=== PATIENT | male | born 1960 | race Hispanic/Latino ===

== ENCOUNTER 2018-02-09 15:57 | Emergency (ER) | payer SELFPAY ==
[2018-02-09] MEDS ORDERED: NA CHLORIDE 0.9% 1,000 ML ONE (16:23)
[2018-02-09] MEDS ORDERED: ONDANSETRON 4 MG/2 ML VIAL ONE (16:32)
[2018-02-09] MEDS ORDERED: MORPHINE 4 MG/ML SYR ONE (16:32)
[2018-02-09 17:04] LABS: BUN Blood Urea Nitrogen 15 mg/dL (7-18); Bicarbonate 25 mmol/L (21-32); Glucose Level 126 mg/dL (74-106); Potassium 3.9 mmol/L (3.5-5.1); Protime INR 1.03; Sodium Level 140 mmol/L (136-145); Troponin I < 0.02 ng/mL (0.0-0.045)
[2018-02-09 17:08] LABS: Absolute Lymphocytes (CBC) 1.5 K/uL (0.7-4.9); Absolute Monocytes 0.4 K/uL (0.1-1.3); Absolute Neutrophil 7.6 K/uL (1.8-8.0); Basophils % 0.3 % (0-1.3); Eosinophils % 1.1 % (0-4.4); Hematocrit 45.8 % (39.6-49.0); Lymphocytes % 15.3 % (15.3-44.8); MCH 30.8 pg (27.0-35.0); MCV 88.1 fL (80-100); MPV 10.4 fL (7.6-11.3); RBC Red Blood Cell Count 5.19 M/uL (4.33-5.43)
--- NOTE | 2018-02-09 17:13 | RAD REPORT ---
EXAM DESCRIPTION: RAD - Pelvis - 02/09/2018 4:57 pm CLINICAL HISTORY: Fall from ladder, pelvic pain COMPARISON: None. TECHNIQUE: AP imaging of the pelvis was obtained. FINDINGS: No fracture of the bony pelvis. No fracture, dislocation or other acute hip joint finding. No significant SI joint findings. No soft tissue abnormality. IMPRESSION: Negative pelvis for acute or significant findings.
--- NOTE | 2018-02-09 17:13 | RAD REPORT ---
EXAM DESCRIPTION: RAD - Chest Single View - 02/09/2018 4:57 pm CLINICAL HISTORY: Fall from ladder, chest pain COMPARISON: None. TECHNIQUE: AP portable chest image was obtained 1642 hours . FINDINGS: Lung volumes are low. No pulmonary contusion or acute lung parenchymal process. Heart and vasculature are normal. No measurable pleural effusion and no pneumothorax. No acute bony abnormality seen. No acute aortic findings suspected. IMPRESSION: No acute cardiopulmonary process.
--- NOTE | 2018-02-09 18:00 | RAD REPORT ---
EXAM DESCRIPTION: CT - Head C Spine Cap Humberto Mcguire - 02/09/2018 5:42 pm CLINICAL HISTORY: Fall from ladder, head, neck, chest and abdomen pain COMPARISON: None. TECHNIQUE: Axial [address] head images were obtained. Axial [address] cervical spine images were obtaine d with sagittal and coronal reconstruction images reviewed. During dynamic enhancement of 100mL non-i onic contrast, axial 5 mm images of the chest, abdomen and pelvis were obtained. All CT scans are performed using dose optimization technique as appropriate and may include automated exposure control or mA/KV adjustment according to patient size. FINDINGS: No intracranial hemorrhage, mass or edema. No midline shift or abnormal fluid collection. Mastoid air cells and paranasal sinuses are clear. No skull fracture. No significant scalp injury. No foreign body seen. CT cervical spine imaging shows normal height. Normal alignment of the vertebrae. No disc space narro wing. No paraspinal mass or hematoma seen. Central canal detail is inherently limited. Concerns for t raumatic disc herniation or traumatic cord injury can be further addressed with MR imaging. CT chest shows no pneumothorax, pulmonary contusion or pleural fluid collection. Bilateral lower lung field atelectasis present. No mediastinal hematoma and the aorta and pulmonary arteries are unremark able. No chest will mass or abnormal axillary finding. No displaced rib fracture or other significant bony finding. CT abdomen and pelvis show no injury to solid abdominal viscera. Gallbladder and biliary tree are unr emarkable. No bowel injury or significant finding. No free air, free fluid or abnormal stranding. No urinary bladder abnormality. No significant bony finding. IMPRESSION: No significant CT Head finding. No significant CT Cervical Spine finding. No significant CT Chest finding. No significant CT Abdomen and Pelvis finding.
--- NOTE | 2018-02-09 18:15 | EDPHYS ---
Physician Documentation [facility] Name: Pop Kuhn Age: 57 yrs Sex: Male : 1960 Arrival Date: 02/09/2018 Time: 16:00 Bed 6 Private MD: ED Physician Brandan Andrade HPI: 02/09 16:21 This 57 yrs old Male presents to ER via Ambulatory with complaints of Fall cp Injury. 16:21 Details of fall: The patient fell from a height, from a ladder, approximately 7 feet. cp 16:21 Onset: The symptoms/episode began/occurred today, 1.5 hour(s) ago. cp 16:21 Associated injuries: The patient sustained injury to the chest, specifically the right cp supraclavicular area, right clavicle, anterior aspect of right upper chest, anterior aspect of left upper chest and mid-sternal area, pain with breathing, pain with movement. Severity of symptoms: in the emergency department the symptoms are unchanged, despite home interventions. Historical: - Allergies: 16:06 No Known Allergies; la1 - PMHx: 16:06 None; la1 - Immunization history:: Adult Immunizations up to date. - Social history:: Smoking status: Patient/guardian denies using tobacco. - Immunization history: Last tetanus immunization: - up to date. - Ebola Screening: : No symptoms or risks identified at this time. ROS: 16:25 Constitutional: Negative for body aches, chills, fever, poor PO intake. cp 16:25 Eyes: Negative for injury, pain, redness, and discharge. cp Exam: 16:25 ECG was reviewed by the Attending Physician. cp 16:28 Constitutional: The patient appears in no acute distress, alert, awake, cp non-diaphoretic, non-toxic, well developed, well nourished, uncomfortable. 16:28 Head/Face: Normocephalic, atraumatic. Eyes: Pupils equal round and reactive to light, cp extra-ocular motions intact. Lids and lashes normal. Conjunctiva and sclera are non-icteric and not injected. Cornea within normal limits. Periorbital areas with no swelling, redness, or edema. ENT: Nares patent. No nasal discharge, no septal abnormalities noted. Tympanic membranes are normal and external auditory canals are clear. Oropharynx with no redness, swelling, or masses, exudates, or evidence of obstruction, uvula midline. Mucous membranes moist. 16:28 Neck: C-spine: C-collar placed in ED, vertebral tenderness, is not appreciated, crepitus, is not appreciated. 16:28 Neck: Trachea: is midline with no obvious abnormalities. 16:28 Chest/axilla: Inspection: normal, Palpation: crepitus, is not appreciated, tenderness, that is moderate, of the right supraclavicular area, anterior aspect of right upper chest, anterior aspect of left upper chest and mid-sternal area, that partially reproduces the patient's complaints. 16:28 Cardiovascular: Rate: normal, Rhythm: regular, Pulses: Pulses are 2+ in right radial artery, right dorsalis pedis artery, left radial artery and left dorsalis pedis artery. Heart sounds: murmur, not appreciated, rub, not appreciated, gallop, not appreciated, Edema: is not appreciated, JVD: is not appreciated. 16:28 Respiratory: the patient does not display signs of respiratory distress, Respirations: normal, no use of accessory muscles, no retractions, no splinting, no tachypnea, labored breathing, is not present, Breath sounds: are clear throughout, no decreased breath sounds, no stridor, no wheezing. 16:28 Abdomen/GI: Inspection: obese Bowel sounds: active, all quadrants, Palpation: soft, in all quadrants, mild abdominal tenderness, in all quadrants. 16:28 Back: vertebral tenderness, is not appreciated. 16:28 Musculoskeletal/extremity: Exam is negative for decreased range of motion, deformity, injury. 16:28 Skin: cellulitis, is not appreciated, no rash present. 16:28 Neuro: Orientation: to person, place \T\ time. Mentation: is normal, Cerebellar function: is grossly normal, Motor: moves all fours, strength is normal, Sensation: is normal, Gait: is steady. Vital Signs: 16:15 BP 119 / 71; Pulse 67; Resp 20 S; Temp 97.7; Pulse Ox 98% on R/A; Weight 108.86 kg (R); sg Height 5 ft. 6 in. (167.64 cm); Pain 10/10; 17:15 BP 125 / 80; Pulse 69; Resp 17 S; Pulse Ox 99% on R/A; sg 16:15 Body Mass Index 38.74 (108.86 kg, 167.64 cm) sg Preethi Coma Score: 16:15 Eye Response: spontaneous(4). Verbal Response: oriented(5). Motor Response: obeys sg commands(6). Total: 15. 17:15 Eye Response: spontaneous(4). Verbal Response: oriented(5). Motor Response: obeys sg commands(6). Total: 15. Trauma Score (Adult): 16:15 Eye Response: spontaneous(1); Verbal Response: oriented(1); Motor Response: obeys sg commands(2); Systolic BP: > 89 mm Hg(4); Respiratory Rate: 10 to 29 per min(4); [place] Score: 15; Trauma Score: 12 17:15 Eye Response: spontaneous(1); Verbal Response: oriented(1); Motor Response: obeys sg commands(2); Systolic BP: > 89 mm Hg(4); Respiratory Rate: 10 to 29 per min(4); Preethi Score: 15; Trauma Score: 12 MDM: 16:08 Patient medically screened. cp 16:35 Differential diagnosis: closed head injury, contusion, fracture, laceration, multiple cp trauma. 18:12 Data reviewed: vital signs, nurses notes, lab test result(s), EKG, radiologic studies, cp CT scan. 18:12 Test interpretation: by ED physician or midlevel provider: ECG, plain radiologic cp studies. Counseling: I had a detailed discussion with the patient and/or guardian regarding: the historical points, exam findings, and any diagnostic results supporting the discharge/admit diagnosis, lab results, radiology results, to return to the emergency department if symptoms worsen or persist or if there are any questions or concerns that arise at home. Response to treatment: the patient's symptoms have markedly improved after treatment, VSS. Pain markedly improved. Radiology studies negative for acute trauma. Will discharge to home for continued monitoring. 02/09 16:12 Order name: Troponin I; Complete Time: 17:17 cp 02/09 17:18 Interpretation: Within normal limits: TROP < 0.02. cp 02/09 16:12 Order name: Basic Metabolic Panel; Complete Time: 17:17 cp 02/09 17:17 Interpretation: Normal except: CL 108; GLUC 126; GFR 77. cp 02/09 16:12 Order name: CBC with Diff; Complete Time: 17:43 cp 02/09 16:12 Order name: Creatinine for Radiology; Complete Time: 17:43 cp 02/09 16:12 Order name: PT-INR; Complete Time: 17:43 cp 02/09 16:12 Order name: XRAY Chest (1 view); Complete Time: 17:17 cp 02/09 16:12 Order name: XRAY Pelvis; Complete Time: 17:17 cp 02/09 16:12 Order name: CT Traumagram (Head C Spine CAP W Con); Complete Time: 18:10 cp 02/09 18:11 Interpretation: Report reviewed. 02/09 16:12 Order name: Ptt, Activated; Complete Time: 17:43 cp 02/09 17:15 Order name: ABO/RH typing; Complete Time: 18:10 EDMS 02/09 17:15 Order name: Antibody Screen; Complete Time: 18:10 EDMS 02/09 18:03 Order name: ABO/RH no charge; Complete Time: 18:10 EDMS 02/09 16:12 Order name: EKG; Complete Time: 16:13 cp 02/09 16:12 Order name: EKG - Nurse/Tech; Complete Time: 16:15 cp 02/09 16:12 Order name: Labs collected and sent; Complete Time: 16:15 cp 02/09 16:12 Order name: IV; Complete Time: 16:15 cp 02/09 16:12 Order name: IV; Complete Time: 16:15 cp EC:25 Rate is 63 beats/min. Rhythm is regular. WI interval is normal. QRS interval is normal. cp QT interval is normal. T waves are Inverted in lead III. Interpreted by me. Reviewed by me. Administered Medications: 17:00 Drug: NS 0.9% 1000 ml Route: IV; Rate: 1 bolus; Site: left antecubital; hb 17:35 Follow up: Response: No adverse reaction; IV Status: Completed infusion; IV Intake: sg 1000ml Disposition: 02/10 07:34 Co-signature as Attending Physician, Brandan Andrade MD I agree with the assessment and jaun plan of care. Disposition: 02/09/18 18:14 Discharged to Home. Impression: Fall on and from ladder, Other chest pain - from fall. - Condition is Stable. - Discharge Instructions: Chest Wall Pain, Musculoskeletal Pain. - Prescriptions for Anaprox DS 550 mg Oral Tablet - take 1 tablet by ORAL route every 12 hours As needed; 20 tablet. Ultracet 37.5- 325 mg Oral Tablet - take 1 tablet by ORAL route every 6 hours - for up to 5 days; do not exceed 8 tablets per day. no driving while taking medication; 15 tablet. Cyclobenzaprine 10 mg Oral Tablet - take 1 tablet by ORAL route every 8 hours As needed no driving while taking medication; 15 tablet. - Work release form, Medication Reconciliation Form, Thank You Letter, Antibiotic Education, Prescription Opioid Use form. - Follow up: Private Physician; When: 1 - 2 days; Reason: Recheck today's complaints. - Problem is new. - Symptoms have improved. Signatures: Dispatcher [employer] EDMS Walter Gupta RN RN sg Anderson, Corey, MD MD cha Attema, Lee RN RN la1 Brandan Le PA PA Divya Moya RN RN Corrections: (The following items were deleted from the chart) 02/09 17:12 02/08 16:25 Constitutional: Negative for body aches, chills, fever, poor PO intake, cp cp 02/09 17:12 02/08 16:25 Eyes: Negative for injury, pain, redness, and discharge, cp cp 02/09 17:02/08 16:25 Cardiovascular: Positive for chest pain, Negative for edema, palpitations, cp cp 02/09 17:12 02/08 16:25 Respiratory: Negative for shortness of breath, cp cp 02/09 17:02/08 16:25 Abdomen/GI: Negative for abdominal pain, constipation, black/tarry stool, cp rectal bleeding, cp 02/09 17:12 02/08 16:25 Back: Negative for radiated pain, cp cp 02/09 17:12 02/08 16:25 Skin: Negative for cellulitis, rash, cp cp 02/09 17:12 02/08 16:25 MS/extremity: Negative for decreased range of motion, deformity, cp paresthesias, cp 02/09 17:12 02/08 16:25 Neuro: Negative for altered mental status, headache, loss of consciousness, cp seizure activity, syncope, near syncope, weakness, cp 02/09 17:12 02/08 16:25 All other systems are negative, cp cp 02/09 17:15 16:12 TYPE AND SCREEN+[id number].LAB.BRZ ordered. EDMS EDMS 18:27 18:14 02/09/2018 18:14 Discharged to Home. Impression: Fall on and from ladder; Other sg chest pain - from fall. Condition is Stable. Forms are Medication Reconciliation Form, Thank You Letter, Antibiotic Education, Prescription Opioid Use. Follow up: Private Physician; When: 1 - 2 days; Reason: Recheck today's complaints. Problem is new. Symptoms have improved. cp
--- NOTE | 2018-02-09 18:15 | ER ---
Nurse's Notes [facility] Name: Pop Kuhn Age: 57 yrs Sex: Male : 1960 Arrival Date: 02/09/2018 Time: 16:00 Bed 6 Private MD: Diagnosis: Fall on and from ladder;Other chest pain-from fall Presentation: 02/09 16:05 Presenting complaint: Patient states: I fell about 7 feet out of a tree and landed on la1 my head and chest, pt denies LOC. Transition of care: patient was not received from another setting of care. Onset of symptoms was February 09, 2018. Risk Assessment: Do you want to hurt yourself or someone else? Patient reports no desire to harm self or others. Initial Sepsis Screen: Does the patient meet any 2 criteria? No. Patient's initial sepsis screen is negative. Does the patient have a suspected source of infection? No. Patient's initial sepsis screen is negative. Care prior to arrival: None. 16:05 Method Of Arrival: Ambulatory la1 16:05 Acuity: LIVIA 2 la1 16:05 Mechanism of Injury: Fall from ladder. Trauma event details: Injury occurred in the [facility], Injury occurred: at home. Injury occurred: February 09, 2018. Trauma Activation: Alert Physician: ED Physician; Name: ; Notified At: ; Arrived At: Physician: General Surgeon; Name: ; Notified At: ; Arrived At: Physician: Radiology; Name: ; Notified At: ; Arrived At: Physician: Respiratory; Name: ; Notified At: ; Arrived At: Physician: Lab; Name: ; Notified At: ; Arrived At: Historical: - Allergies: 16:06 No Known Allergies; la1 - PMHx: 16:06 None; la1 - Immunization history:: Adult Immunizations up to date. - Social history:: Smoking status: Patient/guardian denies using tobacco. - Immunization history: Last tetanus immunization: - up to date. - Ebola Screening: : No symptoms or risks identified at this time. Screenin:05 Nutritional screening: No deficits noted. Fall Risk Fall in past 12 months (25 points). Total Salvador Fall Scale indicates Low Risk Score (25-44 pts). Fall prevention measures have been instituted. Side Rails Up X 2 Frequent Obs/Assesments occuring Family Present and informed to notify staff if they need to leave bedside. 16:15 Abuse screen: Denies threats or abuse. Denies injuries from another. Tuberculosis sg screening: No symptoms or risk factors identified. Never had TB. Primary Survey: 16:15 A: Airway: patent, No supplemental oxygen in use on arrival. Oral cavity: clear, sg Trachea midline. Breathing/Chest: Respiratory pattern: regular, Respiratory effort: spontaneous, labored, reports pain with respiration Breath sounds: diminished, in left posterior lower lobe. Circulation: Heart tones present. Pulses: palpable right radial artery, right dorsalis pedis artery, left radial artery and left dorsalis pedis artery. Skin color: pink, Skin temperature: warm, dry. Disability Alert. Secondary Survey: 16:15 HEENT: Head No injury/deformity Face No injury/deformity Eyes: No injury or deformity sg noted. Ears: clear bilaterally. Nose: clear to bilateral nares. Throat: No injury or deformity noted. is clear. Gastrointestinal: Abdomen is soft, non-distended, Bowel sounds present in all quadrants. Palpation No deficit noted. : No signs and/or symptoms were reported regarding the genitourinary system. Musculoskeletal: Circulation, motion, and sensation intact. Range of motion: intact in all extremities, Swelling absent Reports pain in head, right supraclavicular area, back and neck. Assessment: 16:15 General: Appears in no apparent distress. comfortable, well groomed, well developed, sg well nourished, Behavior is calm, cooperative, appropriate for age. Pain: Denies pain. Neuro: Level of Consciousness is awake, alert, obeys commands, Oriented to person, place, time, situation, Appropriate for age Slasher Machine Operator are equal bilaterally Moves all extremities. Full function Gait is steady, Speech is normal, Facial symmetry appears normal, Pupils are PERRLA. Cardiovascular: Capillary refill is brisk in bilateral fingers Patient's skin is warm and dry. Chest pain is denied. Cardiovascular: Heart tones S1 S2 present. Respiratory: Airway is patent Respiratory effort is even, unlabored, Respiratory pattern is regular, symmetrical, Breath sounds are clear bilaterally. GI: No signs and/or symptoms were reported involving the gastrointestinal system. : No signs and/or symptoms were reported regarding the genitourinary system. EENT: No signs and/or symptoms were reported regarding the EENT system. Derm: Skin is pink, warm \T\ dry. Musculoskeletal: Circulation, motion, and sensation intact. Range of motion: intact in all extremities, Swelling absent Reports pain in head, back, chest and neck. 17:15 Reassessment: Patient appears in no apparent distress at this time. Patient and/or sg family updated on plan of care and expected duration. Pain level reassessed. Patient is alert, oriented x 3, equal unlabored respirations, skin warm/dry/pink. Patient states feeling better. 18:02 Reassessment: Patient appears in no apparent distress at this time. Patient and/or sg family updated on plan of care and expected duration. Pain level reassessed. Patient is alert, oriented x 3, equal unlabored respirations, skin warm/dry/pink. awaiting radiology results at this time, reports pain is relieved at this time, pt states that he is feeling better, pt family remains at bedside at this time. Patient states feeling better. Vital Signs: 16:15 BP 119 / 71; Pulse 67; Resp 20 S; Temp 97.7; Pulse Ox 98% on R/A; Weight 108.86 kg (R); sg Height 5 ft. 6 in. (167.64 cm); Pain 10/10; 17:15 BP 125 / 80; Pulse 69; Resp 17 S; Pulse Ox 99% on R/A; sg 16:15 Body Mass Index 38.74 (108.86 kg, 167.64 cm) sg [place] Coma Score: 16:15 Eye Response: spontaneous(4). Verbal Response: oriented(5). Motor Response: obeys sg commands(6). Total: 15. 17:15 Eye Response: spontaneous(4). Verbal Response: oriented(5). Motor Response: obeys sg commands(6). Total: 15. Trauma Score (Adult): 16:15 Eye Response: spontaneous(1); Verbal Response: oriented(1); Motor Response: obeys sg commands(2); Systolic BP: > 89 mm Hg(4); Respiratory Rate: 10 to 29 per min(4); Preethi Score: 15; Trauma Score: 12 17:15 Eye Response: spontaneous(1); Verbal Response: oriented(1); Motor Response: obeys sg commands(2); Systolic BP: > 89 mm Hg(4); Respiratory Rate: 10 to 29 per min(4); Preethi Score: 15; Trauma Score: 12 ED Course: 16:00 Patient arrived in ED. sb2 16:02 Triage completed. hb 16:06 Arm band placed on left wrist. C-collar applied. la1 16:07 Raina Le PA is PHCP. la1 16:07 Raina Andrade MD is Attending Physician. la1 16:07 Walter Gupta, DERICK is Primary Nurse. sg 16:15 Patient has correct armband on for positive identification. Bed in low position. Call sg light in reach. Side rails up X2. site monitor on. Pulse ox on. NIBP on. Warm blanket given. Head of bed elevated. 16:15 Initial lab(s) drawn, by me. Inserted saline lock: 20 gauge in left antecubital area, jb1 using aseptic technique. Blood collected. 16:15 Rigid cervical collar applied and checked by physician. jb1 16:15 Patient maintains SpO2 saturation greater than 95% on room air. Thermoregulation: warm sg blanket given to patient. 16:23 EKG done, by ED staff, reviewed by Raina RAI. jb1 16:47 Note: WAITING ON LABS, PER RAINA LE. kw1 16:57 XRAY Chest (1 view) In Process Unspecified. EDMS 16:57 XRAY Pelvis In Process Unspecified. EDMS 17:33 CT completed. Patient tolerated procedure well. Patient moved back from CT. kw1 17:42 CT Traumagram (Head C Spine CAP W Con) In Process Unspecified. EDMS 18:25 No provider procedures requiring assistance completed. IV discontinued, intact, sg bleeding controlled, No redness/swelling at site. Pressure dressing applied. Administered Medications: 17:00 Drug: NS 0.9% 1000 ml Route: IV; Rate: 1 bolus; Site: left antecubital; hb 17:35 Follow up: Response: No adverse reaction; IV Status: Completed infusion; IV Intake: sg 1000ml Intake: 16:15 PO: 0ml; Total: 0ml. sg 17:35 IV: 1000ml; Total: 1000ml. sg Outcome: 18:14 Discharge ordered by . cp 18:25 Condition: good sg 18:25 Discharge instructions given to patient, family, Instructed on discharge instructions, follow up and referral plans. no drinking with medication, no driving heavy equipment, medication usage, safety practices, Demonstrated understanding of instructions, follow-up care, medications, Prescriptions given X 3. 18:25 Patient's length of stay in the Emergency Department was greater than 2 hours. Patient's length of stay was extended due to staffing issues within the emergency department. 18:25 Discharged to home ambulatory, with family. sg 18:27 Patient left the ED. sg Signatures: Dispatcher [employer] EDMS Phan Jones jb1 Walter Gupta RN RN Bhupinder Bullard RN RN la1 Raina Le PA PA Divya Moya RN RN Marixa Goldberg kw1 Ngozi Melendez sb2 Corrections: (The following items were deleted from the chart) 16:02 16:02 Acuity: LIVIA 2 hb hb 19:30 15:25 Discharged to home ambulatory, with family, sg sg
--- NOTE | 2018-02-10 07:40 | EKG ---
Test Date: 2018-02-09 Test Time: 16:18:29 Coal Unloader: BILLY MEASUREMENT RESULTS: Intervals: Rate: 63 NE: 136 QRSD: 96 QT: 396 QTc: 405 [place]: P: 60 NE: 136 QRS: 46 T: 27 INTERPRETIVE STATEMENTS: Normal sinus rhythm Normal ECG No previous ECG available for comparison Electronically Signed On 02-10-18 07:38:57 [employer]ANSITIONAL [employer] TEACHER by Felix Pastor
== END 2018-02-09 18:27 | disposition home or self-care (01) ==
LOC: ER 15:57
DX: R07.89 Other chest pain (principal); W11.XXXA Fall on and from ladder, initial encounter; Y93.9 Activity, unspecified; Y92.9 Unspecified place or not applicable
CPT/HCPCS: 36415; 70450; 71045; 71260; 72125; 72170; 74177; 80048; 84484; 85025; 85610; 85730; 86850; 86900; 86901; 93005; 96360; 99285; J2405; J7030; Q9967